=== PATIENT | male | born 1955 | race Caucasian/White ===

== ENCOUNTER 2023-07-04 07:03 | Outpatient (CLI) | payer MEDICARE, SELFPAY ==
[2023-07-04 08:54] LABS: Anion Gap 7 mmol/L (8-16); Appearance Urine Clear (Clear); Bacteria Urine None Seen /hpf; Bilirubin Urine Negative (Negative); Blood Urea Nitrogen 19 mg/dL (9-20); Blood Urine Trace (Negative); Calcium 9.3 mg/dL (8.4-10.2); Carbon Dioxide 28 mmol/L (22-30); Chloride 102 mmol/L (98-107); Cholesterol 178 mg/dL (0-200); Color Urine Yellow (Yellow); Estimated Glomerular Filt Rate > 60; Glucose 116 mg/dL (65-110); Glucose Urine UA Negative (Negative); HDL Direct 35 mg/dL; Ketones Urine Negative (Negative); Leukocyte Esterase Ur 3+ LEU/UL (NEGATIVE); Nitrate Urine Negative (Negative); Non Pathogenic Casts 0-2; Potassium 4.2 mmol/L (3.4-5.0); Protein Urine Negative (Negative); RBC Urine 0-2 /hpf (0-2); Sodium 137 mmol/L (137-145); Specific Grav Ur 1.016 (1.001-1.035); Squamous Epithelial Cell Urine None seen /hpf (Few); Triglycerides 66 mg/dL (<150); Urobilinogen Urine 0.2 mg/dL (<2.0); WBC Urine 51-100 /hpf (0-3); pH Urine 5.5 (5.0-9.0)
[2023-07-04 08:55] LABS: Add Urine Microscopic? YES
[2023-07-04 09:05] LABS: LDL Cholesterol Direct 116 mg/dL
[2023-07-04 09:09] LABS: Hemoglobin A1C 6.1 % (<5.7)
[2023-07-04 09:17] LABS: Creatinine Urine 106.3 mg/dL
[2023-07-04 09:23] LABS: MALB Creatinine Ratio 24.6 mg/g (0-30); Microalbumin Urine Random 26.2 mg/L (0-16.7)
[2023-07-04 09:34] LABS: Vitamin D 25 Hydroxy 87.6 ng/mL
== END 2023-07-04 07:04 | disposition home or self-care (01) ==
PROVIDERS: PCP Nurse Practitioner Family; Visit Provider Nurse Practitioner Family
DX: E55.9 Vitamin D deficiency, unspecified (principal); I10 Essential (primary) hypertension; R80.9 Proteinuria, unspecified; E11.9 Type 2 diabetes mellitus without complications; E78.5 Hyperlipidemia, unspecified; R79.89 Other specified abnormal findings of blood chemistry
CPT/HCPCS: 36415; 80048; 80061; 81001; 82043; 82306; 83036; 83970

== ENCOUNTER 2024-01-01 11:49 | Outpatient (CLI) | payer MEDICARE, SELFPAY ==
[2024-01-01 13:30] LABS: Alanine Aminotransferase 33 U/L (6-50); Albumin Level 4.6 g/dL (3.5-5.1); Alkaline Phosphatase 34 U/L (38-126); Anion Gap 9 mmol/L (8-16); Aspartate Amino Transferase 28 U/L (17-59); Bilirubin,Total 0.9 mg/dL (0.2-1.3); Blood Urea Nitrogen 20 mg/dL (9-20); Calcium 10.2 mg/dL (8.4-10.2); Carbon Dioxide 24 mmol/L (22-30); Chloride 104 mmol/L (98-107); Cholesterol 157 mg/dL (0-200); Estimated Glomerular Filt Rate > 60; Glucose 146 mg/dL (65-110); HDL Direct 45 mg/dL; Potassium 4.5 mmol/L (3.4-5.0); Sodium 137 mmol/L (137-145); Triglycerides 46 mg/dL (<150)
[2024-01-01 13:41] LABS: LDL Cholesterol Direct 106 mg/dL
[2024-01-01 21:58] LABS: Hemoglobin A1C 6.5 % (<5.7)
== END 2024-01-01 11:50 | disposition home or self-care (01) ==
LOC: ANHLAB 11:52
PROVIDERS: PCP Nurse Practitioner Family; Visit Provider Nurse Practitioner Family
DX: E78.5 Hyperlipidemia, unspecified (principal); I10 Essential (primary) hypertension; E11.9 Type 2 diabetes mellitus without complications
CPT/HCPCS: 36415; 80048; 80061; 80076; 83036

== ENCOUNTER 2024-04-13 13:53 | Outpatient (CLI) | payer MEDICARE, SELFPAY ==
[2024-04-13 14:24] LABS: Appearance Urine Clear (Clear); Bacteria Urine None Seen /hpf; Bilirubin Urine Negative (Negative); Blood Urine Non-Hemolyzed Trace (Negative); Color Urine Yellow (Yellow); Glucose Urine UA Negative (Negative); Ketones Urine Negative (Negative); Leukocyte Esterase Ur 3+ LEU/UL (Negative); Nitrate Urine Negative (Negative); Non Pathogenic Casts 0-2; Protein Urine 1+ mg/dL (Negative); RBC Urine 0-2 /hpf (0-2); Specific Grav Ur 1.014 (1.001-1.035); Squamous Epithelial Cell Urine None Seen /hpf (Few); Urobilinogen Urine 0.2 mg/dL (<2.0); WBC Urine >100 /hpf (0-3)
[2024-04-13 14:58] LABS: Add Urine Microscopic? YES
== END 2024-04-13 13:54 | disposition home or self-care (01) ==
LOC: ANHLAB 13:54
PROVIDERS: PCP Nurse Practitioner Family; Visit Provider Nurse Practitioner Family
DX: R30.0 Dysuria (principal)
CPT/HCPCS: 81001; 87086; 87088

== ENCOUNTER 2024-04-24 08:10 | Outpatient (CLI) | payer MEDICARE, SELFPAY ==
[2024-04-24 09:06] LABS: Appearance Urine Clear (Clear); Bacteria Urine None Seen /hpf; Bilirubin Urine Negative (Negative); Blood Urine Negative (Negative); Color Urine Yellow (Yellow); Glucose Urine UA Negative (Negative); Ketones Urine Negative (Negative); Leukocyte Esterase Ur 2+ LEU/UL (Negative); Nitrate Urine Negative (Negative); Non Pathogenic Casts 0-2; Protein Urine Negative (Negative); RBC Urine 0-2 /hpf (0-2); Specific Grav Ur 1.021 (1.001-1.035); Squamous Epithelial Cell Urine None Seen /hpf (Few); Urobilinogen Urine 0.2 mg/dL (<2.0); pH Urine 5.5 (5.0-9.0)
[2024-04-24 09:34] LABS: Add Urine Microscopic? YES
== END 2024-04-24 08:11 | disposition home or self-care (01) ==
PROVIDERS: PCP Nurse Practitioner Family; Visit Provider Nurse Practitioner Family
DX: R82.998 Other abnormal findings in urine (principal)
CPT/HCPCS: 81001

== ENCOUNTER 2024-07-06 07:20 | Outpatient (CLI) | payer MEDICARE, SELFPAY ==
[2024-07-06 08:02] LABS: Add Urine Microscopic? YES; Appearance Urine Clear (Clear); Bacteria Urine Rare /hpf; Bilirubin Urine Negative (Negative); Blood Urine Negative (Negative); Color Urine Yellow (Yellow); Glucose Urine UA Negative (Negative); Ketones Urine Negative (Negative); Leukocyte Esterase Ur 3+ LEU/UL (Negative); Nitrate Urine Negative (Negative); Non Pathogenic Casts 0-2; Protein Urine Negative (Negative); RBC Urine 0-2 /hpf (0-2); Specific Grav Ur 1.018 (1.001-1.035); Squamous Epithelial Cell Urine None Seen /hpf (Few); Urobilinogen Urine 0.2 mg/dL (<2.0); WBC Urine 51-100 /hpf (0-3); pH Urine 5.5 (5.0-9.0)
[2024-07-06 08:32] LABS: Alanine Aminotransferase 33 U/L (6-50); Albumin Level 4.3 g/dL (3.5-5.1); Alkaline Phosphatase 28 U/L (38-126); Anion Gap 9 mmol/L (4-12); Aspartate Amino Transferase 35 U/L (17-59); Bilirubin,Total 0.7 mg/dL (0.2-1.3); Blood Urea Nitrogen 19 mg/dL (9-20); Carbon Dioxide 27 mmol/L (22-30); Chloride 101 mmol/L (98-107); Cholesterol 152 mg/dL (0-200); Estimated Glomerular Filt Rate > 60; Glucose 101 mg/dL (65-110); HDL Direct 43 mg/dL; Potassium 4.3 mmol/L (3.4-5.0); Sodium 137 mmol/L (137-145); Triglycerides 49 mg/dL (<150)
[2024-07-06 08:43] LABS: LDL Cholesterol Direct 95 mg/dL
[2024-07-06 09:03] LABS: Prostate Specific Antigen 1.8 ng/mL (< OR = 4.0)
[2024-07-06 09:46] LABS: Hemoglobin A1C 6.3 % (<5.7)
[2024-07-06 10:05] LABS: Microalbumin Urine Random 60.2 mg/L (0-16.7)
[2024-07-06 10:06] LABS: Creatinine Urine 105.1 mg/dL; MALB Creatinine Ratio 57.3 mg/g (0-30)
[2024-07-06 10:16] LABS: Vitamin D 25 Hydroxy 51.1 ng/mL
== END 2024-07-06 07:21 | disposition home or self-care (01) ==
PROVIDERS: PCP Nurse Practitioner Family; Visit Provider Nurse Practitioner Family
DX: E55.9 Vitamin D deficiency, unspecified (principal); I10 Essential (primary) hypertension; E78.5 Hyperlipidemia, unspecified; E11.9 Type 2 diabetes mellitus without complications; Z12.5 Encounter for screening for malignant neoplasm of prostate
CPT/HCPCS: 36415; 80048; 80061; 80076; 81001; 82043; 82306; 83036; 84153; 84443; G0103

== ENCOUNTER 2024-07-13 12:19 | Outpatient (CLI) | payer MEDICARE, SELFPAY ==
--- NOTE | 2024-07-13 12:35 | ECG_ITS ---
Test Date: 2024-07-13 12:46:19 Measurements Intervals [place] Rate: 38 P: 66 DE: 226 QRS: 11 QRSD: 88 T: 15 QT: 462 QTc: 370 Interpretive Statements SLOW SINUS BRADYCARDIA WITH SINUS ARRHYTHMIA WITH FIRST DEGREE AV BLOCK INTERMITTENT SINUS PAUSES ABNORMAL ECG No previous ECG available for comparison Electronically Signed On 07-13-2024 12:56:29 CDT by Demarcus Cobb D.O.
== END 2024-07-13 12:20 | disposition home or self-care (01) ==
PROVIDERS: PCP Nurse Practitioner Family; Visit Provider Nurse Practitioner Family
DX: R00.1 Bradycardia, unspecified (principal); I10 Essential (primary) hypertension; R94.31 Abnormal electrocardiogram [ECG] [EKG]
CPT/HCPCS: 93005

== ENCOUNTER 2024-07-14 13:27 | Outpatient (CLI) | payer MEDICARE, SELFPAY ==
--- NOTE | 2024-07-16 08:06 | WPDHOLTEREM ---
Holter/Event Monitor Holter/Event Monitor Date of procedure: 07/14/24 Holter/Event Procedure: 24 Hr Holter Monitor Indications: Bradycardia Conclusion: 1. 24 hour holter monitor on 07/14/24. 2. Predominant rhythm is sinus rhythm. HR range 22-106 bpm; average 51 bpm. HR at 22 bpm was slow sinus bradycardia at 06:15. 3. There are 4,000 premature supraventricular complexes, 434 supraventricular couplets, 89 supraventricular bigeminy, 583 supraventricular trigeminy. There is an episode of ectopic atrial or junctional rhythm with QRS change in morphology to LBBB at 82 bpm at 00:48 and at 67 bpm at 02:42. No supraventricular tachycardia. 4. There are 8 premature ventricular complexes and 2 ventricular couplets and 2 ventricular triplets. No ventricular tachycardia. 5. There is a second degree AV block, type I at 13:45. The longest pause is 3.3 seconds at 04:23 due to a sinus pause. 6. No symptoms available for correlation.
== END 2024-07-14 13:28 | disposition home or self-care (01) ==
PROVIDERS: PCP Nurse Practitioner Family; Visit Provider Nurse Practitioner Family
DX: R00.1 Bradycardia, unspecified (principal)
CPT/HCPCS: 93225; 93226

== ENCOUNTER 2025-01-19 08:09 | Outpatient (CLI) | payer MEDICARE, SELFPAY ==
--- OUTSIDE RECORDS SUMMARY | 2025-01-19 08:25 | XMS_ITS | Patient Health Record ---
Author Organization [facility] Office Address [address] [facility] [address] [place] [address] REASON FOR REFERRAL No Information PROBLEMS Problem Type ICD Code Onset Dates Problem Status W/U Status Risk SNOMED Code Notes Problem Anxiety disorder, unspecified (F41.9) Active confirmed Anxiety disorde r (840316111) Problem Chronic kidney disease, stage 2 (mild) (N18.2) Active confirmed Chronic kidne y disease stage 2 (822754001) Problem Chronic fatigue, unspecified (R53.82) Active confirmed Chronic fatigue syndrome (disorder) (92334777) Problem Edema, unspecified (R60.9) Active confirmed Edema (60297319) Problem Essential hypertension (I10) Active confirmed Essential hypertension (91568505) PLAN OF TREATMENT No Information
--- OUTSIDE RECORDS SUMMARY | 2025-01-19 08:26 | XMS_ITS | Data Portability ---
Author Organization [facility], Main Office Address [address] [place] [address] Assessment No assessment recorded. Plan of Treatment Reminders Order Date Submit Date Provider Last Modified By Organization Details Last Modified Time Details Appointments None recorded . Lab HbA1c (hemoglo bin A1c), blood 023 04/11/[email or web address] Add On Lab Orders, [address] [place], [address], 3 08:21:49 CMP, serum or plasma 023 04/11/[email or web address] Add On Lab Orders, [address] [place], [address], 3 08:21:49 Referral None recorded . Procedures None recorded . Surgeries None recorded . Imaging None recorded . Medication Orders None recorded . Patient TargetsNo targets recorded. Patient InstructionsNo instructions recorded. Reason for Referral None Reported. Results Created Date Observation Date Name Description Value Unit Range Abnormal Flag Note LastModifiedBy Organization Detail LastModifiedTime 08/22/20 22 08/22/2022 HEMOG LOBIN A1C HA1C 6.3 % 4.0-6. 0 high Diabe jasmeet Scree corazon Crite rachel: <5.7% Consi stent with absen ce of diabe jasmeet 5.7-6 .4% Consi stent with incre ased risk for diabe jasmeet (pred iabet es) >OR=6 .5% Consi stent with diabe jasmeet REFER ENCE: Diabe jasmeet Care 2016, 39(Melgar ppl.1 ):s13 -s22 Not Available [facility] (Lab) [address] [place], [address], 08/22/2022 19:50:49 08/22/2008/22/2022 COMPR EHENS JESI METAB OLIC PANEL sodium 141 mmol/ L 137-14 5 Not Available [facility] (Lab) [address] [place], [address], 08/22/2022 19:37:46 08/22/20 22 08/22/2022 COMPR EHENS JESI METAB OLIC PANEL potassium 4.8 mmol/ L 3.5-5. 1 Not Available [facility] (Lab) [address] [place], [address], 08/22/2022 19:37:46 08/22/2008/22/2022 COMPR EHENS JESI METAB OLIC PANEL chloride 105 mmol/ L 98-107 Not Available [facility] (Lab) [address] [place], [address], 08/22/2022 19:37:46 08/22/2008/22/2022 COMPR EHENS JESI METAB OLIC PANEL carbon dioxide 27 mmol/ L 22-30 Not Available [facility] (Lab) [address] [place], [address], 08/22/2022 19:37:46 08/22/2008/22/2022 COMPR EHENS JESI METAB OLIC PANEL anion gap 13.8 mmol/ L 14-22 low Not Available [facility] (Lab) [address] [place], [address], 08/22/2022 19:37:46 08/22/20 22 08/22/2022 COMPR EHENS JESI METAB OLIC PANEL glucose 143 mg/dL 70-99 high Not Available [facility] (Lab) [address] [place], [address], 08/22/2022 19:37:46 08/22/20 22 08/22/2022 COMPR EHENS JESI METAB OLIC PANEL BUN 17 mg/dL 8-19 Not Available [facility] (Lab) [address] [place], [address], 08/22/2022 19:37:46 08/22/2008/22/2022 COMPR EHENS JESI METAB OLIC PANEL creatinine 0.88 mg/dL 0.66-1 .25 Not Available [facility] (Lab) [address] [place], [address], 08/22/2022 19:37:46 08/22/20 22 08/22/2022 COMPR EHENS JESI METAB OLIC PANEL GFR >60 Refer ence Range : [place] ge GFR Healt hy Adult : >60 mL/mi n/1.7 3 m2 Chron ic Kidne y Disea se: 15-60 mL/mi n/1.7 3 m2 Kidne y Failu re: <15/m L/min /1.73 m2 www.n iddk. nih.g ov The MDRD study equat ion has not been valid ated in child get <18 years of age; pregn ant women ; the elder ly >85 years of age; or in some racia l or ethni c subgr oups, such as Hisco nics. Outsi de the valid ated orly eters , estim ated GFR is less accur ate, requi ring clini tayla judgm ent on a case- by-ca se basis . Clini tayla inter preta tion for other races and ages must be made by the clini italia. The MDRD study equat ion has not been valid ated for the evalu ation of serum creat inine relat ed to nutri bryson l statu s or medic ation usage . For perso ns <18 years of age, a pedia tric GFR calcu lator is avail able on the NKF websi te: https ://gorge mcbride.mayra romero/pr angel blairal s/kdo qi/gf r_cal culat or Not Available [facility] (Lab) [address] [place], [address], 08/22/2022 19:37:46 08/22/2008/22/2022 COMPR EHENS JESI METAB OLIC PANEL alkaline phosphatase 36 U/L 38-126 low Not Available [facility] (Lab) [address] [facility] [place], [address], 08/22/2022 19:37:46 08/22/20 22 08/22/2022 COMPR EHENS JESI METAB OLIC PANEL alanine aminotransfe rase 24 U/L 0-50 Not Available [facility] (Lab) [address] [place], [address], 08/22/2022 19:37:46 08/22/2008/22/2022 COMPR EHENS JESI METAB OLIC PANEL aspartate aminotransfe rase 30 U/L 15-46 Not Available [facility] (Lab) [address] [place], [address], 08/22/2022 19:37:46 08/22/20 22 08/22/2022 COMPR EHENS JESI METAB OLIC PANEL bilirubin, total 0.80 mg/dL 0.20-1 .30 Not Available [facility] (Lab) [address] [place], [address], 08/22/2022 19:37:46 08/22/20 22 08/22/2022 COMPR EHENS JESI METAB OLIC PANEL calcium 9.3 mg/dL 8.4-10 .2 Not Available [facility] (Lab) [address] [place], [address], 08/22/2022 19:37:46 08/22/20 22 08/22/2022 COMPR EHENS JESI METAB OLIC PANEL total protein 7.9 g/dL 6.3-8. 2 Not Available [facility] (Lab) [address] [place], [address], 08/22/2022 19:37:46 08/22/20 22 08/22/2022 COMPR EHENS JESI METAB OLIC PANEL albumin 4.7 g/dL 3.0-4. 4 high Not Available [facility] (Lab) [address] [place], [address], 08/22/2022 19:37:46 08/22/20 22 08/22/2022 COMPR EHENS JESI METAB OLIC PANEL globulin 3.2 g/dL 2.6-4. 2 Not Available [facility] (Lab) [address] [place], [address], 08/22/2022 19:37:46 08/22/20 22 08/22/2022 COMPR EHENS JESI METAB OLIC PANEL A/G ratio 1.5 ratio 1.0-2. 0 Not Available [facility] (Lab) [address] [place], [address], 08/22/2022 19:37:46 10/30/19 23 10/30/2022 CULTU RE URINE urc ===== ===== ===== ===== ===== ===== ===== ===== ===== ===== ===== ===== ===== ===== ===== ===== ===== ===== ===== ===== ===== ===== ===== ===== CULTU RE NO.: [id number] Exam Statu s: Final Exam Type: CULTU RE URINE ===== ===== ===== ===== ===== ===== ===== ===== ===== ===== ===== ===== ===== ===== ===== ===== ===== ===== ===== ===== ===== ===== ===== ===== Cultu re Repor t: Organ ism #01 Enter ococc us faeca lis (strf ae) Antib iotic s strfa e Achie vable Achie vable (01) Dosag e Serum Level Urine Level mcg/m l mcg/m l Beta- Lacta shanta NEG - 000A Cipro floxa puja <=0.5 S 000A Dapto mycin 0.25 S 000A Eryth romyc in >=8 R 000A Levof loxac in 2 S 000A Linez olid 2 S 000A Tetra cycli ne >=16 R 000A Tigec yclin e <=0.1 2 S 000A Not Available [facility] (Lab) [address] [facility] [place], [address], 11/03/2022 07:29:39 10/30/19 23 10/30/2022 urina lysis , dipst ick Leukocytes (reference range: negative rita/ l) Large Not Available [facility] [address] [place], [address], 10/30/2022 14:52:27 10/30/19 23 10/30/2022 urina lysis , dipst ick Nitrite (reference rage: negative mg/dl) negati ve Not Available [facility] [place] [address] [place], [address], 10/30/2022 14:52:27 10/30/19 23 10/30/2022 urina lysis , dipst ick Urobilinogen (reference range: 0.2-1 mg/dl) 0.2 Not Available [facility] [address] [place], [address], 10/30/2022 14:52:27 10/30/19 23 10/30/2022 urina lysis , dipst ick Protein (reference range: negative mg/dl) 300 Not Available [facility] [place] [address] [place], [address], 10/30/2022 14:52:27 10/30/19 23 10/30/2022 urina lysis , dipst ick pH (reference range: 5-7) 5.0 Not Available [facility] [address] [place], [address], 10/30/2022 14:52:27 10/30/19 23 10/30/2022 urina lysis , dipst ick Blood (reference range: negative Deacon/ l) Large Not Available [facility] [address] [place], [address], 10/30/2022 14:52:27 10/30/19 23 10/30/2022 urina lysis , dipst ick Specific [place]oun (reference range: 1.005-1.030) 1.015 Not Available [facility] [address] [place], [address], 10/30/2022 14:52:27 10/30/19 23 10/30/2022 urina lysis , dipst ick Ketone (reference range: negative mg/dl) Trace Not Available [facility] [address] [place], [address], 10/30/2022 14:52:27 10/30/19 23 10/30/2022 urina lysis , dipst ick Bilirubin (reference range: negative mg/dl) Modera te Not Available [facility] [address] [place], [address], 10/30/2022 14:52:27 10/30/19 23 10/30/2022 urina lysis , dipst ick Glucose (reference range: negative mg/dl) Negati ve Not Available [facility] [address] [place], [address], 10/30/2022 14:52:27 10/30/19 23 10/30/2022 urina lysis , dipst ick Appearance Slight ly Cloudy Not Available [facility] [address] [place], [address], 10/30/2022 14:52:27 10/30/19 23 10/30/2022 urina lysis , dipst ick Color Dark Yellow Not Available [facility] [address] [place], [address], 10/30/2022 14:52:27 12/13/19 23 12/13/2022 CULTU RE URINE urc ===== ===== ===== ===== ===== ===== ===== ===== ===== ===== ===== ===== ===== ===== ===== ===== ===== ===== ===== ===== ===== ===== ===== ===== CULTU RE NO.: [id number] Exam Statu s: Final Exam Type: CULTU RE URINE ===== ===== ===== ===== ===== ===== ===== ===== ===== ===== ===== ===== ===== ===== ===== ===== ===== ===== ===== ===== ===== ===== ===== ===== Cultu re Repor t: Organ ism #01 Enter ococc us faeca lis (strf ae) Antib iotic s strfa e Achie vable Achie vable (01) Dosag e Serum Level Urine Level mcg/m l mcg/m l Ampic illin <=2 S 021D Beta- Lacta shanta NEG - 021D Cipro floxa puja <=0.5 S 021D Levof loxac in 2 S 021D Tetra cycli ne >=16 R 021D Vanco mycin 2 S 021D rt - Test Card Code AST-G P 021D o2 - Final Organ ism ENTER O 021D af - Antib iotic Fami MACRO L 021D af - Antib iotic Famil y Na ap - Pheno type Name RESIS T 021D ap - Pheno type Name Nitro furan toin 32 S 021D Not Available [facility] (Lab) [address] [place], [address], 12/18/2022 08:18:12 12/13/19 23 12/13/2022 PSA SCREE N PSA medicare screen 1.88 NG/mL 0.00-4 .00 Not Available [facility] (Lab) [address] [place], [address], 12/13/2022 21:40:21 12/13/19 23 12/13/2022 HEMOG LOBIN A1C HA1C 6.8 % 4.0-6. 0 high Diabe jasmeet Scree corazon Crite rachel: <5.7% Consi stent with absen ce of diabe jasmeet 5.7-6 .4% Consi stent with incre ased risk for diabe jasmeet (pred iabet es) >OR=6 .5% Consi stent with diabe jasmeet REFER ENCE: Diabe jasmeet Care 2016, 39(Melgar ppl.1 ):s13 -s22 Not Available [facility] (Lab) [address] [place], [address], 12/13/2022 21:14:17 12/13/19 23 12/13/2022 LIPID PANEL cholesterol 157 mg/dL 140-19 9 NIH IDALIA NSUS RECOM MENDA TION FOR ELIZABETH STERO L: ADULT CHILD LOW RISK: <200 <170 BORDE RLINE : <200- 239 ----- HIGH RISK: >240 >200 Not Available [facility] (Lab) [address] [place], [address], 12/13/2022 20:53:44 12/13/19 23 12/13/2022 LIPID PANEL triglyceride s 52 mg/dL 0-150 NIH IDALIA NSUS REPOR T RECOM MENDA TION FOR TRIGL YCERI YOLY: ADULT CHILD LOW RISK: <150 ----- BODER LINE: 150-1 99 ----- HIGH RISK: >200 ----- Not Available [facility] (Lab) [address] [place], [address], 12/13/2022 20:53:44 12/13/19 23 12/13/2022 LIPID PANEL HDL cholesterol 43 mg/dL 40- Not Available [facility] (Lab) [address] [place], [address], 12/13/2022 20:53:44 12/13/19 23 12/13/2022 LIPID PANEL LDL cholesterol, calculated 104 mg/dL 0-130 NIH IDALIA NSUS REPOR T RECOM MENDA TIONS FOR LDL: ADULT CHILD LOW RISK <130 <110 (OPTI MAL LDL) <100 ----- BORDE RLINE : 130-1 59 ----- HIGH RISK: >160 >130 A TRIGL YCERI DE RESUL T >400 INVAL IDATE S THE CALCU LATIO N FOR LDL FRACT IONAT ION - THE LDL RESUL T WILL NOT BE REPOR ABDULAZIZ. Not Available [facility] (Lab) [address] [place], [address], 12/13/2022 20:53:44 12/13/19 23 12/13/2022 MICRO ALBUM IN RANDO M URINE microalbumin , urine 156.8 mg/L 0.0-16 .6 high Not Available [facility] (Lab) [address] [place], [address], 12/13/2022 20:09:09 12/13/19 23 12/13/2022 URINA LYSIS COMPL ETE, IRIS color orange abnormal Not Available [facility] (Lab) [address] [place], [address], 12/13/2022 19:51:04 12/13/19 23 12/13/2022 URINA LYSIS COMPL ETE, IRIS appear extra turbid abnormal Not Available [facility] (Lab) [address] [place], [address], 12/13/2022 19:51:04 12/13/19 23 12/13/2022 URINA LYSIS COMPL ETE, IRIS specific gravity 1.023 1.001- 1.030 Not Available [facility] (Lab) [address] [place], [address], 12/13/2022 19:51:04 12/13/19 23 12/13/2022 URINA LYSIS COMPL ETE, IRIS pH 5.5 pH_un its 5.0-9. 0 Not Available [facility] (Lab) [address] [place], [address], 12/13/2022 19:51:04 12/13/19 23 12/13/2022 URINA LYSIS COMPL ETE, IRIS leukocytes >/=500 rita/u L negati ve- abnormal Not Available [facility] (Lab) [address] [place], [address], 12/13/2022 19:51:04 12/13/19 23 12/13/2022 URINA LYSIS COMPL ETE, IRIS nitrite negati ve negati ve- Not Available [facility] (Lab) [address] [place], [address], 12/13/2022 19:51:04 12/13/19 23 12/13/2022 URINA LYSIS COMPL ETE, IRIS protein 30 mg/dL negati ve- abnormal Not Available [facility] (Lab) [address] [place], [address], 12/13/2022 19:51:04 12/13/19 23 12/13/2022 URINA LYSIS COMPL ETE, IRIS glucose normal mg/dL normal - Not Available [facility] (Lab) [address] [place], [address], 12/13/2022 19:51:04 12/13/19 23 12/13/2022 URINA LYSIS COMPL ETE, IRIS ketones negati ve mg/dL negati ve- Not Available [facility] (Lab) [address] [place], [address], 12/13/2022 19:51:04 12/13/19 23 12/13/2022 URINA LYSIS COMPL ETE, IRIS urobilinogen normal mg/dL normal - Not Available [facility] (Lab) [address] [place], [address], 12/13/2022 19:51:04 12/13/19 23 12/13/2022 URINA LYSIS COMPL ETE, IRIS bilirubin negati ve mg/dL negati ve- Not Available [facility] (Lab) [address] [place], [address], 12/13/2022 19:51:04 12/13/19 23 12/13/2022 URINA LYSIS COMPL ETE, IRIS blood 0.06 mg/dL negati ve- abnormal Not Available [facility] (Lab) [address] [place], [address], 12/13/2022 19:51:04 12/13/19 23 12/13/2022 URINA LYSIS COMPL ETE, IRIS white blood cells 61-100 /i??h pfi?? 0-8 abnormal Not Available [facility] (Lab) [address] [place], [address], 12/13/2022 19:51:04 12/13/19 23 12/13/2022 URINA LYSIS COMPL ETE, IRIS white blood cell clumps modera te /i??h pfi?? none seen- abnormal Not Available [facility] (Lab) [address] [place], [address], 12/13/2022 19:51:04 12/13/19 23 12/13/2022 URINA LYSIS COMPL ETE, IRIS red blood cells 0-4 /i??h pfi?? 0-4 Not Available [facility] (Lab) [address] [place], [address], 12/13/2022 19:51:04 12/13/19 23 12/13/2022 URINA LYSIS COMPL ETE, IRIS bacteria few abnormal Not Available [facility] (Lab) [address] [place], [address], 12/13/2022 19:51:04 12/13/19 23 12/13/2022 URINA LYSIS COMPL ETE, IRIS mucous modera te /i??l pfi?? abnormal Not Available [facility] (Lab) [address] [place], [address], 12/13/2022 19:51:04 12/13/19 23 12/13/2022 URINA LYSIS COMPL ETE, IRIS squamous epithelial none /i??l pfi?? abnormal Not Available [facility] (Lab) [address] [place], [address], 12/13/2022 19:51:04 04/10/20 22 11/06/2017 colon oscop y scree corazon (PROC ) No observ ation record ed. [id number] Not Available 12/26/2022 05:04:38 01/31/20 23 01/30/2023 colon oscop y scree corazon (PROC ) No observ ation record ed. [email or web address] Not Available 2022 09:27:56 Result Notes None recorded. Problems Name Problem SNOMED Code Status Onset Date Resolution Date Notes Provider Name and Address Organization Details Recorded Time Diverticul osis of colon 162045041 Active 2022 PATRICK García, [facility] 3 11:47:45 Benign prostatic hyperplasi a 837432514 Active 2022 Tramaine Barr MD [address] [place] [address], [address] , [facility] 3 12:01:06 Benign essential hypertensi on 6458714 Active Not Available [facility] 3 18:05:03 Liver enzymes outside reference range 366502153 Completed Not Available [facility] 3 04:53:36 Recurrent urinary tract infection 708683612 Completed 202204/11/2023 PATRICK García, [facility] [employer] [facility] 3 11:47:48 Microscopi c hematuria 270560561 Active 2021 Not Available [facility] 3 18:05:03 Adult health examinatio n Active 2021 Not Available [facility] 3 18:05:03 Albuminuri a 634077437 Completed 201912/08/2020 Not Available [facility] 3 04:53:36 Proteinuri a 41214075 Completed Not Available [facility] 3 04:53:37 Microalbum inuria 247317517 Active 2021 Not Available [facility] 3 18:05:03 Type 2 diabetes mellitus without complicati on 704218793 Completed Not Available [facility] 3 04:53:37 Acute urinary tract infection 614197018 Completed 202204/11/2023 PATRICK García null, [facility] 3 11:47:43 Type 2 diabetes mellitus 58315734 Active Not Available [facility] 3 18:05:03 Hyperlipid emia 22756594 Active Not Available [facility] 3 18:05:03 Essential hypertensi on 81561130 Completed Not Available [facility] 3 04:53:37 Diabetes mellitus 97456257 Completed Not Available [facility] 3 04:53:37 Problem Notes None recorded. Procedures Surgical History Date Name Laterality Status Provider Name and Address Organization Details Recorded Time 7 hernia repair completed Not Available [facility] 12/26/2022 04:43:09 other completed Not Available [facility] 10/2022 04:43:09 Imaging Results Imaging Date Name Status LastModified by Organiz ation Details LastModified Time 11/06/2017 colonoscopy screening (PROC) completed [id number] Information not available 12/26/2022 05:04:38 01/30/2023 colonoscopy screening (PROC) completed [email or web address] Information not available 01/31/2023 09:27:56 Procedure Notes None recorded. Medical Equipment None Reported. Allergies Allergen ID Allergen Name Allergen Category Reaction Reaction Severity Criticality Documentation Date Start Date Code Code System Note Provider Name and Address Organization Details Recorded Time 8082 simvastat in medicatio n myalgias (muscle pain) moderate Not available 12/26/2022 64968 RxNorm hyper glyce wilver, weigh t gain Not Available [facility] 3 05:03:57 Medications Name Sig Start Date Stop Date Status Note LastModified by Organization Details LastModified Time fish oil 1000mg capsule TAKE 1 CAPSULE BY MOUTH TWICE A DAY FOR 90 DAYS active Not Available Not Available No t Available amoxicillin 500 mg capsule 04/21 completed Not Available Not Available Not Available glyburide 5 mg tablet 2 tabs BID with meals 08/08 completed Not Available Not Available Not Available hydrocodone 5 mg-acetamin ophen 325 mg tablet TAKE ONE TABLET DAILY AT NIGHT NEEDED 04/21 completed Not Available Not Available Not Available lisinopril 20 mg tablet TAKE 1 TABLET BY MOUTH EVERY DAY. NEEDS APPT FOR FURTHER REFILLS active Not Available Not Available No t Available simvastatin 10 mg tablet TAKE 1 TABLET BY MOUTH EVERY DAY active Not Available Not Available No t Available ciprofloxac in 500 mg tablet TAKE 1 TABLET BY MOUTH EVERY 12 HOURS FOR 7 DAYS 01/19 completed Not Available Not Available Not Available oxycodone-a cetaminophe n 5 mg-325 mg tablet 10/11 completed Not Available Not Available Not Available tamsulosin 0.4 mg capsule TAKE 1 CAPSULE BY MOUTH EVERY DAY FOR 90 DAYS active Not Available Not Available No t Available glipizide ER 2.5 mg tablet, extended release 24 hr 12/05 completed Not Available Not Available Not Available metformin 1,000 mg tablet TAKE 1 TABLET BY MOUTH TWICE A DAY active Not Available Not Available No t Available lisinopril 10 mg tablet TAKE 1 TABLET DAILY active Not Available Not Available No t Available ergocalcife rol (vitamin D2) 1,250 mcg (50,000 unit) capsule TAKE 1 CAPSULE BY MOUTH ONE TIME PER WEEK FOR 90 DAYS active Not Available Not Available No t Available ibuprofen 600 mg tablet TAKE 1 TABLET EVERY SIX HOURS NEEDED FOR PAIN 04/21 completed Not Available Not Available Not Available glipizide 5 mg tablet TAKE 1 TABLET BY MOUTH TWICE A DAY active Not Available Not Available No t Available naproxen 500 mg tablet Take 1 tablet twice a day by oral route. 06/12 completed Not Available Not Available Not Available Microlet Lancet TAKE 1 EACH TWICE A DAY BY MISCELL. ROUTE FOR 30 DAYS. active Not Available Not Available No t Available Laxative (bisacodyl) 5 mg tablet,gabi yed release TAKE 6 TABLETS BY MOUTH AT 8 AM ON 01/29 active Not Available Not Available No t Available chlorhexidi ne gluconate 0.12 % mouthwash RINSE TWICE A DAY WITH 1/2 OUNCE FOR 30 SECONDS THEN SPIT-- NOTHING TO EAT, DRINK, RINSE OR SMOKE FOR 30 MINUTES AFTER RINSING 04/21 completed Not Available Not Available Not Available Contour Test Strips USE 1 STRIP TWICE A DAY. *NEEDS APPT FOR FURTHER REFILLS active Not Available Not Available No t Available OneTouch Ultra2 Meter kit 01/18 completed Not Available Not Available Not Available fenofibrate nanocrystal lized 145 mg tablet TAKE 1 TABLET BY MOUTH EVERY DAY APPT FOR FURTHER REFILLS active Not Available Not Available No t Available lidocaine 2 % mucosal jelly in applicator Take 10 mL by mucous route. 01/22 completed Not Available Not Available Not Available GaviLyte-G 236 gram-22.74 gram-6.74 gram-5.86 gram oral solution MIX AND DRINK HALF AT 5 PM ON 01/29 AND THE OTHER HALF AT 5 AM 01/30 completed Not Available Not Available Not Available Suprep Bowel Prep Kit 17.5 gram-3.13 gram-1.6 gram oral solution 12/24 completed Not Available Not Available Not Available Procto-Med HC 2.5 % topical cream perineal applicator APPLY A THIN LAYER TO THE AFFECTED AREA(S) BY TOPICAL ROUTE 2-4 TIMESDAIL Y 07/29 completed Not Available Not Available Not Available OneToKidaro Ultra Blue Test Strip 08/08 completed Not Available Not Available Not Available Vitals Date Recorded Body mass index (BMI) Body height Oxygen saturation Oxygen saturation in Arterial blood by Pulse oximetry Pain severity - 0-10 verbal numeric rating [Score] - Reported Heart rate Body weight Systolic blood pressure Diastolic blood pressure Provider Name and Address Organization Details Last Updated DateTime 2 24.2 kg/m2 177.8 cm 97 % 97 % 0 78 /min 66573.1 1 g 130 mm[Hg] 80 mm[Hg] Not Available [facility] 3 04:50:52 Date Recorded Body mass index (BMI) Body height Oxygen saturation Oxygen saturation in Arterial blood by Pulse oximetry Heart rate Body weight Systolic blood pressure Diastolic blood pressure Provider Name and Address Organization Details Last Updated DateTime 2 23.5 kg/m2 177.8 cm 98 % 98 % 53 /min 23083.1 5 g 140 mm[Hg] 74 mm[Hg] Not Available [facility] 3 04:50:52 Date Recorded Body mass index (BMI) Body height Oxygen saturation Oxygen saturation in Arterial blood by Pulse oximetry Heart rate Body weight Systolic blood pressure Diastolic blood pressure Provider Name and Address Organization Details Last Updated DateTime 3 23 kg/m2 177.8 cm 97 % 97 % 77 /min 03029.7 8 g 142 mm[Hg] 70 mm[Hg] Not Available [facility] 3 04:50:52 Date Recorded Body mass index (BMI) Body height Oxygen saturation Oxygen saturation in Arterial blood by Pulse oximetry Heart rate Body temperature Body weight Systolic blood pressure Diastolic blood pressure Provider Name and Address Organization Details Last Updated DateTime 3 23.2 kg/m2 177.8 cm 97 % 97 % 62 /min 97.6 [degF] 48301.9 6 g 118 mm[Hg] 66 mm[Hg] Not Available [facility] 3 04:50:52 Date Recorded Body height Body mass index (BMI) Body weight Body temperature Heart rate Oxygen saturation Oxygen saturation in Arterial blood by Pulse oximetry Systolic blood pressure Diastolic blood pressure Provider Name and Address Organization Details Last Updated DateTime 3 177.8 cm 23.2 kg/m2 84788.9 6 g 97.7 [degF] 60 /min 97 % 97 % 120 mm[Hg] 70 mm[Hg] PATRICK Paul [place] - [facility] [place] [employer] 3 11:43:57 Social History Question Answer Notes LastModified by Organizat ion Details LastModified Time Tobacco Smoking Status Former Smoker Not Available [facility] 12/26/2022 04:42:32 Do You Have An Advance Directive? Yes MIGRATION.36531 [id number] Information not available 12/26/2022 What Is Your Level Of Alcohol Consumption? None MIGRATION.38718 98880 Information not available 12/26/2022 Do You Wear A Helmet When Biking? No MIGRATION.75197 46907 Information not available 12/26/2022 Are You Blind Or Do You Have Difficulty Seeing? No MIGRATION.32884 37702 Information not available 12/26/2022 What Is Your Level Of Caffeine Consumption? Occasional MIGRATION.44172 53807 Information not available 12/26/2022 How Much Tobacco Do You Chew? None MIGRATION.52127 32490 Information not available 12/26/2022 Are You Deaf Or Do You Have Serious Difficulty Hearing? No MIGRATION.07906 08146 Information not available 12/26/2022 What Type Of Diet Are You Following? REGULAR MIGRATION.36253 31913 Information not available 12/26/2022 Which Illicit Or Recreational Drugs Have You Used? None MIGRATION.90894 92248 Information not available 12/26/2022 What Is Your Occupation? [employer] MIGRATION.98985 26508 Information not available 12/26/2022 Have There Been Any Changes To Your Family Or Social Situation? No MIGRATION.18150 42437 Information not available 12/26/2022 What Is The Fluoride Status Of Your Home? Fluoridated MIGRATION.64660 02298 Information not available 12/26/2022 When Did You Quit Smoking? 17+yearssincelastci bobby At 32 Years Old MIGRATION.05527 98114 Information not available 12/26/2022 Where Do You Live? [place] MIGRATION.51467 81198 Information not available 12/26/2022 What Was The Date Of Your Most Recent Tobacco Screening? 04/11/2022 MIGRATION.22175 68365 Information not available 12/26/2022 Do You Use Your Seat Belt Or Car Seat Routinely? Yes MIGRATION.82644 33010 Information not available 12/26/2022 Do You Have Smoke And Carbon Monoxide Detectors In Your Home? Yes MIGRATION.67576 45936 Information not available 12/26/2022 Do You Use Sunscreen Routinely? No MIGRATION.83714 35601 Information not available 12/26/2022 Do You Have Any Dietary Restrictions? No MIGRATION.83764 08288 Information not available 12/26/2022 Sex: Male Functional Status Question Answer Note LastModified by Organizat ion Details LastModified Time Do you have difficulty walking or climbing stairs? No MIGRATION.0580215 026 Information not available 12/26/2022 Do you have transportation difficulties? No MIGRATION.5879201 026 Information not available 12/26/2022 Are you able to walk? YESWOREST MIGRATION.0352332 026 Information not available 12/26/2022 Do you have difficulty doing errands alone? No MIGRATION.2198117 026 Information not available 12/26/2022 Are you able to care for yourself? Yes MIGRATION.5167355 026 Information not available 12/26/2022 Do you have difficulty dressing or bathing? No MIGRATION.1734351 026 Information not available 12/26/2022 What is your exercise level? None MIGRATION.7137210 026 Information not available 12/26/2022 Mental Status Question Answer Note LastModified by Organizat ion Details LastModified Time Do you have difficulty concentrating, remembering or making decisions? No MIGRATION.[id number] 6 Information not available 12/26/2022 Family History Relationship Description Onset Age of this Age Resolved Age Notes LastModified by Organization Details LastModified Time Brother Diabetes mellitus MIGRATION.160 [id number] Not available 12/26/2022 04:43:20 Brother Diabetes mellitus MIGRATION.530 [id number] Not available 12/26/2022 04:43:20 Father Diabetes mellitus MIGRATION.062 [id number] Not available 12/26/2022 04:43:20 Medical History Condition Response DIABETES, TYPE Y HYPERTENSION Y HIGH CHOLESTEROL / HYPERLIPIDEMIA Y Immunizations Vaccine Type Date Status Note Provider Nam e and Address Organization Details Recorded Time Influenza, high-dose, trivalent, PF 2 completed Not Available [facility] 04/08/2023 18:05:04 Influenza, high-dose, trivalent, PF 0 completed Not Available [facility] 04/08/2023 18:05:04 pneumococcal polysaccharide PPV23 7 completed Not Available [facility] 04/08/2023 18:05:04 SARS-COV-2 (COVID-19) vaccine, UNSPECIFIED 1 completed Not Available [facility] 04/08/2023 18:05:04 SARS-COV-2 (COVID-19) vaccine, UNSPECIFIED 1 completed Not Available [facility] 04/08/2023 18:05:04 Influenza, high-dose, trivalent, PF 9 completed Not Available [facility] 04/08/2023 18:05:04 Influenza, high-dose, quadrivalent, PF 2 completed Not Available [facility] 04/08/2023 18:05:04 Influenza, high-dose, quadrivalent, PF 1 completed Not Available [facility] 04/08/2023 18:05:04 Influenza, split virus, quadrivalent, PF 0 completed Not Available [facility] 04/08/2023 18:05:04 Influenza, split virus, quadrivalent, PF 7 completed Not Available [facility] 04/08/2023 18:05:04 Influenza, split virus, quadrivalent, preservative 6 completed Not Available [facility] 04/08/2023 18:05:04 Influenza, split virus, quadrivalent, PF 5 completed Not Available [facility] 04/08/2023 18:05:04 Past Encounters Encounter ID Performer Location Encounter Start Date Encounter Closed Date Diagnosis/Indication Diagnosis SNOMED-CT Code Diagnosis ICD10 Code Diagnosis Note [id number] [facility] [address] [place] [address] 04/06/2021 00:00:00 04/06/2021 13:35:37 [id number] [facility] [address] [place] [address] 08/08/2021 00:00:00 08/08/2021 13:28:20 [id number] [facility] [address] [address] 12/08/2021 00:00:00 12/08/2021 12:55:19 [id number] [facility] [address] [address] 12/25/2021 00:00:00 12/25/2021 12:49:53 [id number] [facility] [address] [address] 01/03/2022 00:00:00 01/03/2022 13:49:04 [id number] [facility] [address] [address] 01/22/2022 00:00:00 01/22/2022 12:51:27 [id number] [facility] [address] [address] 04/11/2022 00:00:00 04/11/2022 13:03:20 [id number] [facility] [address] [address] 08/22/2022 00:00:00 08/22/2022 12:28:46 [id number] [facility] [address] [address] 10/30/2022 00:00:00 10/30/2022 15:07:49 [id number] [facility] [address] [address] 12/13/2022 00:00:00 12/13/2022 13:25:47 [id number] Tramaine Barr MD [facility] [address] [place] [address] 04/11/2023 11:39:18 04/11/2023 12:16:18 Type 2 diabetes mellitus 62557428 E11.37X9 under control Benign ess ential hypertension 8202763 I10 under control Hyperlipidemia 67438564 E78.5 no statins due to side effects Microscopic hematuria 19 0342135 R31.29 no symptoms, seen urology Microalbuminuria 8324095 06 R80.9 on lisinopril Adult heal th examination 228887166 Z00.00 Colonoscop y- 02/17Pneumo vax- 09/2007Pre vnar and pneumovax - never wantsPSA- 12/20FLU- 07/2022Eye exam- 2COV ID- 02/22/21. 04/03/21,0 12/08/21 Benign pro static hyperplasia 130225726 N40.0 meds help Health Concerns Section Related Observation LastModified by Organization Detai ls LastModified Time None Recorded Concern Status LastModified by Organization Details LastModified Time None Recorded Advance Directives Directive Y: Payers Encounter Date Sequence Insurance Name Policy Number Policy Martinez Covered Member ID Martinez Member ID Guarantor Name 04/11/2023 1 [employer] (MEDICARE REPLACEMENT PPO) [id number] Genaro Jaramillo [id number] Genaro Jaramillo Notes Date Note Type Note Provider Name and Address Organization Details Recorded Time 04/11/2023 text/html Doing fine, compliant to medications, no side affects, here for follow up DM- accu checks are 80-120, controlling diet, doing exercise regularly, A1c was 6.4 (12/2022)Last eye exam was 05/2022 ([facility]) in chartNo hypoglycemia, No numbness or tinglingMeds- Glyburide 5 mg 2 tab BID, Metformin 1,000 mg BID HTN- On meds and under controlMeds- Lisinopril 20 mg daily Hyperlipidemia- can not take statins due to side effects, labs good 12/20Meds- Fenofibrate 145 mg daily, Hemorrhoids- some times flare ups, no bleeding, watching diet Elevated liver enzymes in the past, improved watching diet, maintaining weight Microscopic hematuria- seen urology, neg cysto in 2018 AND 2021,, CT urogram showed cystitis, seen nephrology BPH- seen on CT urogtam, on Tamsulosin Diverticulosis- watching diet, colonoscopy 02/17, Dr Mckeon, next in 5 years Tramaine Barr MD [address] [facility], [facility] [address], [place], [address], [place] [facility] 04/11/2023 12:07:32
--- OUTSIDE RECORDS SUMMARY | 2025-01-19 08:26 | XMS_ITS | Clinical Summary ---
Author Organization [facility] Address [address] [place] [id number] Care Team Providers Care Almond Paste Mixer Name Role Phone Unavailable Primary Care Provider Unavailabl e Immunizations Immunization Administration Dates Next Due Covid-19, Mrna, Lnp-s, Pf, 30 Mcg/0.3 Ml Dose (P brianazer) 12/08/2021 Social History Tobacco Use Types Packs/Day Years Used Date Smoking Tobacco: Never Assessed Sex and Gender Information Value Date Recorded Sex Assigned at Not on file Legal Sex Male 2:02 PM [employer] Gender Identity Not on file Sexual Orientation Not on file Plan of Treatment Health Maintenance Due Date Last Done Comments Hepatitis C Virus (HCV) Screening 1955 TdaP Immunization 1955 Colonoscopy 01/09/2001 Colorectal Cancer Screening 01/09/2001 Cologuard 01/09/2006 Immunochemical Fecal Occult Blood 01/09/2006 Zoster Immunization (1 of 2) 01/09/2006 Pneumococcal Immunization (50+ years) (2 of 2 - PCV) 09/28/2008 09/28/2007 Influenza Immunization (#1) 06/28/202407/28, 08/12/2020, 10/11/2017, Additional history exists SARS-COV-2 Immunization ( season) 2024 12/08/2021, 04/03/2021, 02/22/2021 Respiratory Syncytial Virus (RSV) Immunization (Adult) (1 - 1-dose 75+ series) 01/09/2031 Hepatitis B Immunization Aged Out No longer eligible based on patient's age to complete this topic Meningococcal Immunization (ACWY) Aged Out No longer eligible based on patient's age to complete this topic Rotavirus Immunization Aged Out No lo nger eligible based on patient's age to complete this topic
[2025-01-19 08:57] LABS: Alanine Aminotransferase 34 U/L (6-50); Albumin Level 4.5 g/dL (3.5-5.1); Alkaline Phosphatase 35 U/L (38-126); Anion Gap 10 mmol/L (4-12); Aspartate Amino Transferase 29 U/L (17-59); Blood Urea Nitrogen 19 mg/dL (9-20); Calcium 9.4 mg/dL (8.4-10.2); Carbon Dioxide 25 mmol/L (22-30); Chloride 105 mmol/L (98-107); Cholesterol 176 mg/dL (0-200); Estimated Glomerular Filt Rate > 60; Glucose 105 mg/dL (65-110); HDL Direct 39 mg/dL; Potassium 4.3 mmol/L (3.4-5.0); Sodium 140 mmol/L (137-145); Triglycerides 44 mg/dL (<150)
[2025-01-19 09:07] LABS: LDL Cholesterol Direct 109 mg/dL
[2025-01-19 10:06] LABS: Hemoglobin A1C 5.7 % (<5.7)
== END 2025-01-19 08:10 | disposition home or self-care (01) ==
LOC: ANHLAB 08:10
PROVIDERS: PCP Nurse Practitioner Family; Visit Provider Nurse Practitioner Family
DX: E11.9 Type 2 diabetes mellitus without complications (principal); I10 Essential (primary) hypertension; E78.5 Hyperlipidemia, unspecified
CPT/HCPCS: 36415; 80053; 80061; 83036

== ENCOUNTER 2025-07-29 07:30 | Outpatient (CLI) | payer MEDICARE, SELFPAY ==
[2025-07-29 08:11] LABS: Hematocrit 43.6 % (42.0-52.0); Hemoglobin 14.8 g/dL (14.0-18.0); Immature Granulocyte Percent A 0.4 % (0-0.5); Lymphocytes Absolute Auto 1.68 K/mm3 (0.9-3.2); Mean Corpuscular HGB Conc 33.9 g/dl (32-36); Mean Corpuscular Hemoglobin 31.8 pg (26-34); Mean Corpuscular Volume 93.8 fl (80-100); Nucleated Red Blood Cells Absolute Auto 0.000 K/mm3 (0.0-0.012); Nucleated Red Blood Cells Perc 0.0 % (0.0-0.2); Platelet Count Result 180 k/mm3 (150-375); Red Blood Count 4.65 M/mm3 (4.6-6.20); White Blood Count 7.7 K/mm3 (4.5-10.0)
[2025-07-29 08:15] LABS: Add Urine Microscopic? YES; Appearance Urine Cloudy (Clear); Glucose Urine UA Negative (Negative); Leukocyte Esterase Ur 3+ LEU/UL (Negative); Nitrate Urine Negative (Negative); Non Pathogenic Casts 0-2; Specific Grav Ur 1.022 (1.001-1.035)
[2025-07-29 08:30] LABS: Alanine Aminotransferase 26 U/L (6-50); Albumin Level 4.3 g/dL (3.5-5.1); Alkaline Phosphatase 50 U/L (38-126); Anion Gap 11 mmol/L (4-12); Aspartate Amino Transferase 32 U/L (17-59); Bilirubin,Total 1.1 mg/dL (0.2-1.3); Blood Urea Nitrogen 18 mg/dL (9-20); Calcium 9.1 mg/dL (8.4-10.2); Carbon Dioxide 23 mmol/L (22-30); Chloride 103 mmol/L (98-107); Cholesterol 112 mg/dL (0-200); Estimated Glomerular Filt Rate > 60; Glucose 113 mg/dL (65-110); HDL Direct 39 mg/dL; Potassium 4.1 mmol/L (3.4-5.0); Sodium 137 mmol/L (137-145); Total Protein 7.6 g/dL (6.3-8.2); Triglycerides 53 mg/dL (<150)
[2025-07-29 08:40] LABS: Hemoglobin A1C 7.2 % (<5.7)
[2025-07-29 09:09] LABS: Thyroid Stimulating Hormone Reflex 2.360 uIU/mL (0.465-4.68)
[2025-07-29 09:26] LABS: MALB Creatinine Ratio 259.5 mg/g (0-30)
== END 2025-07-29 07:31 | disposition home or self-care (01) ==
LOC: ANHLAB 07:30
PROVIDERS: PCP Nurse Practitioner Family; Visit Provider Nurse Practitioner Family
DX: E55.9 Vitamin D deficiency, unspecified (principal); E78.5 Hyperlipidemia, unspecified; I10 Essential (primary) hypertension; R82.998 Other abnormal findings in urine; E11.9 Type 2 diabetes mellitus without complications
CPT/HCPCS: 36415; 80053; 80061; 81001; 82043; 82306; 83036; 84443; 85025; 87086; 87147; 87186

== ENCOUNTER 2025-08-08 08:55 | Emergency (ER) | payer MEDICARE, SELFPAY ==
[2025-08-08 09:02] VITALS: BP 163/99; PULSE 68; RESP 18; TEMP 36.6; O2SAT 98
--- OUTSIDE RECORDS SUMMARY | 2025-08-08 10:04 | XMS_ITS | Data Portability ---
Author Organization [facility] [employer], Main Office Address [address] [place] [address] Assessment No assessment recorded. Plan of Treatment Reminders Order Date Submit Date Provider Last Modified By Organization Details Last Modified Time Details Appointments None recorded . Lab HbA1c (hemoglo bin A1c), blood 023 04/11/20 23 [email or web address] [facility], [address] [place], [address], 3 08:21:49 CMP, serum or plasma 023 04/11/20 23 [email or web address] [facility], [address] [place], [address], 3 08:21:49 Referral None recorded . Procedures [...] 2016, 39(Melgar ppl.1 ):s13 -s[address] [facility] (Lab) [address] [place], [address], 08/22/2022 19:50:49 08/22/2008/22/2022 COMPR EHENS JESI METAB OLIC PANEL sodium 141 mmol/ L 137-[address] [facility] (Lab) [address] [place], [address], 08/22/2022 19:37:46 08/22/2008/22/2022 COMPR EHENS JESI METAB OLIC PANEL potassium 4.8 mmol/ L 3.5-5. [address] [facility] (Lab) [address] [place], [address], 08/22/2022 19:37:46 08/22/2008/22/2022 COMPR EHENS JESI METAB OLIC PANEL chloride 105 mmol/ L 98-[address] [facility] (Lab) [address] [place], [address], 08/22/2022 19:37:46 08/22/2008/22/2022 COMPR EHENS JESI METAB OLIC PANEL carbon dioxide 27 mmol/ L 22-[address] [facility] (Lab) [address] [place], [address], 08/22/2022 19:37:46 08/22/20 22 08/22/2022 COMPR EHENS JESI METAB OLIC PANEL anion gap 13.8 mmol/ L 14-[address] [facility] (Lab) [address] [place], [address], 08/22/2022 19:37:46 08/22/20 22 08/22/2022 COMPR EHENS JESI METAB OLIC PANEL glucose 143 mg/dL 70-[address] [facility] (Lab) [address] [place], [address], 08/22/2022 19:37:46 08/22/20 22 08/22/2022 COMPR EHENS JESI METAB OLIC PANEL BUN 17 mg/dL 8-[address] [facility] (Lab) [address] [place], [address], 08/22/2022 19:37:46 08/22/20 22 08/22/2022 COMPR EHENS JESI METAB OLIC PANEL creatinine 0.88 mg/dL 0.66-[address] [facility] (Lab) [address] [place], [address], 08/22/2022 19:37:46 08/22/20 22 08/22/2022 COMPR EHENS JESI METAB OLIC PANEL GFR >60 Refer ence Range : [place] ge GFR Healt hy Adult : >60 [...] or ethni c subgr oups, such as Hispa nics. Outsi de the valid ated orly [...] NKF websi te: https ://gorge mcbride.mayra romero/pr fiordalizaess johnnieal s/kdo qi/gf r_cal culat or Not Available [facility] (Lab) [address] [place], [address], 08/22/2022 19:37:46 08/22/2008/22/2022 COMPR EHENS JESI METAB OLIC PANEL alkaline phosphatase 36 U/L 38-126 low Not Available [facility] (Lab) [address] [place], [address], 08/22/2022 19:37:46 08/22/20 22 08/22/2022 COMPR EHENS JESI METAB OLIC PANEL alanine aminotransfe rase 24 U/L 0-50 Not Available [facility] (Lab) [address] [place], [address], 08/22/2022 19:37:46 08/22/2008/22/2022 COMPR EHENS JESI METAB OLIC PANEL aspartate aminotransfe rase 30 U/L 15-46 Not Available [facility] (Lab) [address] [place], [address], 08/22/2022 19:37:46 08/22/20 22 08/22/2022 COMPR EHENS JESI METAB OLIC PANEL bilirubin, total 0.80 mg/dL 0.20-[address] [facility] (Lab) [address] [place], [address], 08/22/2022 19:37:46 08/22/2008/22/2022 COMPR EHENS JESI METAB OLIC PANEL calcium 9.3 mg/dL 8.4-[address] [facility] (Lab) [address] [place], [address], 08/22/2022 19:37:46 08/22/20 22 08/22/2022 COMPR EHENS JESI METAB OLIC PANEL total protein 7.9 g/dL 6.3-8. [address] [facility] (Lab) [address] [place], [address], 08/22/2022 19:37:46 08/22/20 22 08/22/2022 COMPR EHENS JESI METAB OLIC PANEL albumin 4.7 g/dL 3.0-4. [address] [facility] (Lab) [address] [place], [address], 08/22/2022 19:37:46 08/22/20 22 08/22/2022 COMPR EHENS JESI METAB OLIC PANEL globulin 3.2 g/dL 2.6-4. [address] [facility] (Lab) [address] [place], [address], 08/22/2022 19:37:46 08/22/20 22 08/22/2022 COMPR EHENS JESI METAB OLIC PANEL A/G ratio 1.5 ratio 1.0-2. [address] [facility] (Lab) [address] [place], [address], 08/22/2022 19:37:46 10/30/19 23 10/30/2022 CULTU RE URINE urc ===== ===== ===== ===== ===== ===== ===== ===== ===== ===== ===== ===== ===== ===== ===== ===== ===== ===== ===== ===== ===== ===== ===== ===== CULTU RE NO.: [id number] 8 Exam Statu s: Final Exam Type: [...] e <=0.1 2 S 000A Not Available [facility] (Lab) [address] [facility], [place], [address], 11/03/2022 07:29:39 10/30/19 23 10/30/2022 urina lysis , dipst ick Leukocytes (reference range: negative rita/ l) Large Not Available [facility] [address] [facility] [place], [address], 10/30/2022 14:52:27 10/30/19 23 10/30/2022 urina lysis , dipst ick Nitrite (reference rage: negative mg/dl) negati ve Not Available [facility]_hrc_gm [facility] [address] [facility] [place], [address], 10/30/2022 14:52:27 10/30/19 23 10/30/2022 urina lysis , dipst ick Urobilinogen (reference range: 0.2-1 mg/dl) 0.2 Not Available [facility] Internal [facility] [address] [facility] [place], [address], 10/30/2022 14:52:27 10/30/19 23 10/30/2022 urina lysis , dipst ick Protein (reference range: negative mg/dl) 300 Not Available [facility] [address] [place], [address], 10/30/2022 14:52:27 10/30/19 23 10/30/2022 urina lysis , dipst ick pH (reference range: 5-7) 5.0 Not Available Z_hr [facility] [address] [place], [address], 10/30/2022 14:52:27 10/30/19 23 10/30/2022 urina lysis , dipst ick Blood (reference range: negative Deacon/ l) Large Not Available [facility] [address] [place], [address], 10/30/2022 14:52:27 10/30/19 23 10/30/2022 urina lysis , dipst ick Specific [place] (reference range: 1.005-1.030) 1.015 Not Available [facility] [address] [place], [address], 10/30/2022 14:52:27 10/30/19 23 10/30/2022 urina lysis , dipst ick Ketone (reference range: negative mg/dl) Trace Not Available [facility] [address] [place], [address], 10/30/2022 14:52:27 10/30/19 23 10/30/2022 urina lysis , dipst ick Bilirubin (reference range: negative mg/dl) Modera te Not Available [facility] [address] [place], [address], 10/30/2022 14:52:27 10/30/19 23 10/30/2022 urina lysis , dipst ick Glucose (reference range: negative mg/dl) Negati ve Not Available [facility] [address] [place], [address], 10/30/2022 14:52:27 10/30/19 23 10/30/2022 urina lysis , dipst ick Appearance Slight ly Cloudy Not Available [facility] [address] [place], [address], 10/30/2022 14:52:27 10/30/19 23 10/30/2022 urina lysis , dipst ick Color Dark Yellow Not Available [facility] [address] [place], [address], 10/30/2022 14:52:27 12/13/19 23 12/13/2022 CULTU RE URINE urc ===== ===== ===== ===== ===== ===== ===== ===== ===== ===== ===== ===== ===== ===== ===== ===== ===== ===== ===== ===== ===== ===== ===== ===== CULTU RE NO.: [id number] 3 Exam Statu s: Final Exam Type: [...] furan toin [address] Not Available [facility] (Lab) [address] [place], [address], 12/18/2022 08:18:12 12/13/19 23 12/13/2022 PSA SCREE N PSA medicare screen 1.88 NG/mL 0.00-[address] [facility] (Lab) [address] [place], [address], 12/13/2022 21:40:21 12/13/19 23 12/13/2022 HEMOG LOBIN A1C HA1C 6.8 % 4.0-6. 0 high Diabe jasmeet Scree corazon Crite rachel: <5.7% Consi stent with absen ce of diabe jasmeet 5.7-6 .4% Consi stent with incre ased risk for diabe jasmeet (pred iabet es) >OR=6 .5% Consi stent with diabe jasmeet REFER ENCE: Diabe jasmeet Care 2016, 39(Melgar ppl.1 ):s13 -s22 [address] [facility] (Lab) [address] [place], [address], 12/13/2022 21:14:17 12/13/19 23 12/13/2022 LIPID PANEL cholesterol 157 mg/dL 140-19 9 NIH IDALIA NSUS RECOM MENDA TION FOR ELIZABETH STERO L: ADULT CHILD LOW RISK: <200 <170 BORDE RLINE : <200- 239 ----- HIGH RISK: >240 >[address] [facility] (Lab) [address] [place], [address], 12/13/2022 20:53:44 12/13/19 23 12/13/2022 LIPID PANEL triglyceride s 52 mg/dL 0-150 NIH IDALIA NSUS REPOR T RECOM MENDA TION FOR TRIGL YCERI YOLY: ADULT CHILD LOW RISK: <150 ----- BODER LINE: 150-1 99 ----- HIGH RISK: >200 ----- Not [address] [facility] (Lab) [address] [place], [address], 12/13/2022 20:53:44 12/13/19 23 12/13/2022 LIPID PANEL HDL cholesterol 43 mg/dL 40- Not Available [facility] (Lab) [address] [place], [address], 12/13/2022 20:53:44 12/13/19 23 12/13/2022 LIPID PANEL [...] WILL NOT BE REPOR ABDULAZIZ. Not Available [facility] (Lab) [address] [place], [address], 12/13/2022 20:53:44 12/13/19 23 12/13/2022 MICRO ALBUM IN RANDO M URINE microalbumin , urine 156.8 mg/L 0.0-16 [address] [facility] (Lab) [address] [place], [address], 12/13/2022 20:09:09 12/13/19 23 12/13/2022 URINA LYSIS COMPL ETE, IRIS color orange abnormal Not Available [facility] (Lab) [address] [place], [address], 12/13/2022 19:51:04 12/13/19 23 12/13/2022 URINA LYSIS COMPL ETE, IRIS appear extra turbid abnormal Not Available [facility] (Lab) [address] [place], [address], 12/13/2022 19:51:04 12/13/19 23 12/13/2022 URINA LYSIS COMPL ETE, IRIS specific gravity 1.023 1.001- 1.[address] [facility] (Lab) [address] [place], [address], 12/13/2022 19:51:04 12/13/19 23 12/13/2022 URINA LYSIS COMPL ETE, IRIS pH 5.5 pH_un its 5.0-9. [address] [facility] (Lab) [address] [place], [address], 12/13/2022 19:51:04 12/13/19 23 12/13/2022 URINA LYSIS COMPL ETE, IRIS leukocytes >/=500 rita/u L negati ve- abnormal Not Available [facility] (Lab) [address] [place], [address], 12/13/2022 19:51:04 12/13/19 23 12/13/2022 URINA LYSIS COMPL ETE, IRIS nitrite negati ve negati ve- Not Available [facility] (Lab) [address] [place], [address], 12/13/2022 19:51:04 12/13/19 23 12/13/2022 URINA LYSIS COMPL ETE, IRIS protein 30 mg/dL negati ve- abnormal Not Available [facility] (Lab) [address] [place], [address], 12/13/2022 19:51:04 12/13/19 23 12/13/2022 URINA LYSIS COMPL ETE, IRIS glucose normal mg/dL normal - Not Available [facility] (Lab) [address] [facility] [place], [address], 12/13/2022 19:51:04 12/13/19 23 12/13/2022 URINA LYSIS COMPL ETE, IRIS ketones negati ve mg/dL negati ve- Not Available [facility] (Lab) [address] [place], [address], 12/13/2022 19:51:04 12/13/19 23 12/13/2022 URINA LYSIS COMPL ETE, IRIS urobilinogen normal mg/dL normal - Not Available [facility] (Lab) [address] [place], [address], 12/13/2022 19:51:04 12/13/19 23 12/13/2022 URINA LYSIS COMPL ETE, IRIS bilirubin negati ve mg/dL negati ve- Not Available [facility] (Lab) [address] [place], [address], 12/13/2022 19:51:04 12/13/19 23 12/13/2022 URINA LYSIS COMPL ETE, IRIS blood 0.06 mg/dL negati ve- abnormal Not Available [facility] (Lab) [address] [place], [address], 12/13/2022 19:51:04 12/13/19 23 12/13/2022 URINA LYSIS COMPL ETE, IRIS white blood cells 61-100 /i??h pfi?? 0-[address] [facility] (Lab) [address] [place], [address], 12/13/2022 19:51:04 12/13/19 23 12/13/2022 URINA LYSIS COMPL ETE, IRIS white blood cell clumps modera te /i??h pfi?? none seen- abnormal Not Available [facility] (Lab) [address] [place], [address], 12/13/2022 19:51:04 12/13/19 23 12/13/2022 URINA LYSIS COMPL ETE, IRIS red blood cells 0-4 /i??h pfi?? 0-[address] [facility] (Lab) [address] [facility] [place], [address], 12/13/2022 19:51:04 12/13/19 23 12/13/2022 URINA LYSIS COMPL ETE, IRIS bacteria few abnormal Not Available [facility] (Lab) [address] [place], [address], 12/13/2022 19:51:04 12/13/19 23 12/13/2022 URINA LYSIS COMPL ETE, IRIS mucous modera te /i??l pfi?? abnormal Not Available [facility] (Lab) [address] [place], [address], 12/13/2022 19:51:04 12/13/19 23 12/13/2022 URINA LYSIS COMPL ETE, IRIS squamous epithelial none /i??l pfi?? abnormal Not Available [facility] (Lab) [address] [place], [address], 12/13/2022 19:51:04 04/10/20 22 11/06/2017 colon oscop y scremayela chandra (PROC ) No observ ation record ed. [id number] Not Available 12/26/2022 05:04:38 01/31/20 23 01/30/2023 colon oscop y ulysses chandra (PROC ) No observ ation record ed. [email or web address] Not Available 2022 09:27:56 Result Notes None recorded. Problems Name Problem SNOMED Code Status Onset Date Resolution Date Notes Provider Name and Address Organization Details Recorded Time Benign essential hypertensi on 8258179 Active Not Available [facility] 3 18:05:03 Liver enzymes outside reference range 030497132 Completed Not Available [facility] 3 04:53:36 Proteinuri a 92369160 Completed Not Available [facility] 3 04:53:37 Type 2 diabetes mellitus without complicati on 012632209 Completed Not Available [facility] 3 04:53:37 Type 2 diabetes mellitus 70566805 Active Not Available [facility] 3 18:05:03 Hyperlipid emia 68548606 Active Not Available [facility] 3 18:05:03 Essential hypertensi on 70198788 Completed Not Available [facility] 3 04:53:37 Diabetes mellitus 26371981 Completed Not Available [facility] 3 04:53:37 Albuminuri a 738683095 Completed 201912/08/2020 Not Available [facility] 3 04:53:36 Adult health examinatio n Active 2021 Not Available [facility] 3 18:05:03 Microscopi c hematuria 058008783 Active 2021 Not Available [facility] 3 18:05:03 Microalbum inuria 976653855 Active 2021 Not Available [facility] 3 18:05:03 Acute urinary tract infection 863484302 Completed 202204/11/2023 Sarah rivero RMA null, [place] [facility] 3 11:47:43 Recurrent urinary tract infection 230500955 Completed 202204/11/2023 Sarah rivero RMA null, [place] [facility] 3 11:47:48 Diverticul osis of colon 369409941 Active 2022 Sarah rivero RMA null, [place] - [facility] 3 11:47:45 Benign prostatic hyperplasi a 100616349 Active 2022 Tramaine Barr MD [address] [place] [address], [address] , [facility] 3 12:01:06 Problem Notes None recorded. Procedures Surgical History Date Name Laterality Status Provider Name and Address Organization Details Recorded Time 7 hernia repair completed Not Available [facility] 12/26/2022 04:43:09 other completed Not Available [facility] 10/2022 04:43:09 Imaging Results None recorded. Procedure Notes None recorded. Medical Equipment None Reported. Allergies Allergen ID Allergen Name Allergen Category Reaction Reaction Severity Criticality Documentation Date Start Date Code Code System Note Provider Name and Address Organization Details Recorded Time 8082 simvastat in medicatio n myalgias (muscle pain) moderate Not available 12/26/2022 71286 RxNorm hyper glyce wilver, weigh t gain Not Available [facility] 3 05:03:57 Medications Name Sig Start Date [...] completed Not Available Not Available Not Available OneTouch Ultra Blue Test Strip 08/08 completed Not Available Not Available Not Available Vitals Date Recorded Body mass index (BMI) Body height Oxygen saturation Oxygen saturation in Arterial blood by Pulse oximetry Heart rate Body weight Systolic And Diastolic Provider Name and Address Organization Details Last Updated DateTime 3 23 kg/m2 177.8 cm 97 % 97 % 77 /min 43132.7 8 g 142/70 mm[Hg] Not Available [facility] 3 04:50:52 Date Recorded Body mass index (BMI) Body height Oxygen saturation Oxygen saturation in Arterial blood by Pulse oximetry Heart rate Body temperature Body weight Systolic And Diastolic Provider Name and Address Organization Details Last Updated DateTime 3 23.2 kg/m2 177.8 cm 97 % 97 % 62 /min 97.6 [degF] 38828.9 6 g 118/66 mm[Hg] Not Available [facility] 3 04:50:52 Date Recorded Body mass index (BMI) Body height Oxygen saturation Oxygen saturation in Arterial blood by Pulse oximetry Pain severity - 0-10 verbal numeric rating [Score] - Reported Heart rate Body weight Systolic And Diastolic Provider Name and Address Organization Details Last Updated DateTime 2 24.2 kg/m2 177.8 cm 97 % 97 % 0 78 /min 95790.1 1 g 130/80 mm[Hg] Not Available [facility] 3 04:50:52 Date Recorded Body height Body mass index (BMI) Body weight Body temperature Heart rate Oxygen saturation Oxygen saturation in Arterial blood by Pulse oximetry Systolic And Diastolic Provider Name and Address Organization Details Last Updated DateTime 3 177.8 cm 23.2 kg/m2 82334.9 6 g 97.7 [degF] 60 /min 97 % 97 % 120/70 mm[Hg] PATRICK Paul [place] - [facility] 3 11:43:57 Date Recorded Body mass index (BMI) Body height Oxygen saturation Oxygen saturation in Arterial blood by Pulse oximetry Heart rate Body weight Systolic And Diastolic Provider Name and Address Organization Details Last Updated DateTime 2 23.5 kg/m2 177.8 cm 98 % 98 % 53 /min 97755.1 5 g 140/74 mm[Hg] Not Available [facility] 04:50:52 Social History Question Answer Notes LastModified by Organizat ion Details LastModified Time Tobacco Smoking Status Former Smoker Not Available [facility] 12/26/2022 04:42:32 Do You Have An Advance Directive? Yes [id number].[id number] Information not available 12/26/2022 Do You Wear A Helmet When Biking? No MIGRATION.71596 12153 Information not available 12/26/2022 Are You Blind Or Do You Have Difficulty Seeing? No MIGRATION.84361 34733 Information not available 12/26/2022 What Is Your Level Of Caffeine Consumption? Occasional MIGRATION.41471 [id number] Information not available 12/26/2022 How Much Tobacco Do You Chew? None MIGRATION.41406 90754 Information not available 12/26/2022 Are You Deaf Or Do You Have Serious Difficulty Hearing? No MIGRATION.74274 93567 Information not available 12/26/2022 What Type Of Diet Are You Following? REGULAR MIGRATION.23703 55397 Information not available 12/26/2022 Which Illicit Or Recreational Drugs Have You Used? None MIGRATION.42542 16449 Information not available 12/26/2022 Have There Been Any Changes To Your Family Or Social Situation? No MIGRATION.03800 99494 Information not available 12/26/2022 What Is The Fluoride Status Of Your Home? Fluoridated MIGRATION.73676 69891 Information not available 12/26/2022 When Did You Quit Smoking? 17+yearssincelastkimberley rosales At 32 Years Old MIGRATION.42941 15534 Information not available 12/26/2022 Where Do You Live? [place] MIGRATION.86625 94579 Information not available 12/26/2022 What Was The Date Of Your Most Recent Tobacco Screening? 04/11/2022 [id number].[id number] Information not available 12/26/2022 Do You Use Your Seat Belt Or Car Seat Routinely? Yes MIGRATION.14032 14724 Information not available 12/26/2022 Do You Have Smoke And Carbon Monoxide Detectors In Your Home? Yes MIGRATION.31344 86599 Information not available 12/26/2022 Do You Use Sunscreen Routinely? No MIGRATION.14571 42531 Information not available 12/26/2022 Do You Have Difficulty Walking Or Climbing Stairs? No MIGRATION.51702 90956 Information not available 12/26/2022 Do You Have Any Dietary Restrictions? No MIGRATION.57607 33762 Information not available 12/26/2022 Sex: Male Functional Status Question Answer Note LastModified by Organizat ion Details LastModified Time What is your level of alcohol consumption? None MIGRATION.252889 0081 Information not available 12/26/2022 Do you have transportation difficulties? No MIGRATION.481698 6482 Information not available 12/26/2022 Are you able to walk independently without assistance or assistive devices? YESWOREST MIGRATION.610541 2673 Information not available 12/26/2022 Do you have difficulty doing errands alone? No MIGRATION.679560 7612 Information not available 12/26/2022 Are you able to care for yourself independently? 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 No MIGRATION.255143 0676 Information not available 12/26/2022 What is your exercise level? None MIGRATION.789337 0688 Information not available 12/26/2022 Mental Status Question Answer Note LastModified by Organizat ion Details LastModified Time Do you have difficulty concentrating, remembering or making decisions? No [id number].[id number] 6 Information not available 12/26/2022 Family History Relationship Description Onset Age of this Age Resolved Age Notes LastModified by Organization Details LastModified Time Brother Diabetes mellitus MIGRATION.849 [id number] Not available 12/26/2022 04:43:20 Brother Diabetes mellitus MIGRATION.724 [id number] Not available 12/26/2022 04:43:20 Father Diabetes mellitus [id number].406 [id number] Not available 12/26/2022 04:43:20 Medical History Condition Response DIABETES, TYPE Y HYPERTENSION Y HIGH CHOLESTEROL / HYPERLIPIDEMIA Y Immunizations Vaccine Type Date Status Note Provider Nam e and Address Organization Details Recorded Time Influenza, high-dose, trivalent, PF 2 completed Not Available [facility] 04/08/2023 18:05:04 Influenza, high-dose, trivalent, PF 0 completed Not Available [facility] 04/08/2023 18:05:04 pneumococcal polysaccharide PPV23 7 completed Not Available [facility] 04/08/2023 18:05:04 SARS-COV-2 (COVID-19) vaccine, UNSPECIFIED 1 completed Not Available [facility] 04/08/2023 18:05:04 SARS-COV-2 (COVID-19) vaccine, UNSPECIFIED 1 completed Not Available [facility] 04/08/2023 18:05:04 Influenza, high-dose, trivalent, PF 9 completed Not Available [facility] 04/08/2023 18:05:04 Influenza, high-dose, quadrivalent, PF 2 completed Not Available [facility] 04/08/2023 18:05:04 Influenza, high-dose, quadrivalent, PF 1 completed Not Available [facility] 04/08/2023 18:05:04 Influenza, split virus, quadrivalent, PF 0 completed Not Available [facility] 04/08/2023 18:05:04 Influenza, split virus, quadrivalent, PF 7 completed Not Available [facility] 04/08/2023 18:05:04 Influenza, split virus, quadrivalent, preservative 6 completed Not Available [facility] 04/08/2023 18:05:04 Influenza, split virus, quadrivalent, PF 5 completed Not Available [facility] 04/08/2023 18:05:04 Past Encounters Encounter ID Performer Location Encounter Start Date Encounter Closed Date Diagnosis/Indication Diagnosis SNOMED-CT Code Diagnosis ICD10 Code Diagnosis IMO Codes Diagnosis Note [id number] Tramaine Barr MD [facility] Internal [facility] [address] [place] [address] 04/06/2021 00:00:00 04/06/2021 13:35:37 [id number] Tramaine Barr MD [facility] Internal [facility] [address] [place] [address] 08/08/2021 00:00:00 08/08/2021 13:28:20 [id number] Tramaine Barr MD [facility] [place] [id number] [facility] [place] [address] 12/08/2021 00:00:00 12/08/2021 12:55:19 [id number] Ar Vega NP [facility] [address] [phone] 12/25/2021 00:00:00 12/25/2021 12:49:53 [id number] Grant Rodgers MD [facility] [address] [address] 01/03/2022 00:00:00 01/03/2022 13:49:04 [id number] Ar Vega NP [facility] [address] [address] 01/22/2022 00:00:00 01/22/2022 12:51:27 [id number] Tramaine Barr MD [facility] [address] [place] [address] 04/11/2022 00:00:00 04/11/2022 13:03:20 [id number] Tramaine Barr MD [facility] [address] [place] [address] 08/22/2022 00:00:00 08/22/2022 12:28:46 [id number] Tramaine Barr MD [facility] [address] [place] [address] 10/30/2022 00:00:00 10/30/2022 15:07:49 [id number] Tramaine Barr MD [facility] [address] [facility] [place] [address] 12/13/2022 00:00:00 12/13/2022 13:25:47 [id number] Tramaine Barr MD [facility] [address] [place] [address]. [place] [address] 04/11/2023 11:39:18 04/11/2023 12:16:18 Type 2 diabetes mellitus 04000344 E11.37X9 under control Benign ess ential hypertension 4110825 I10 under control Hyperlipidemia 59925116 E78.5 no statins due to side effects Microscopic hematuria 19 3042821 R31.29 no symptoms, seen urology Microalbuminuria 5713466 06 R80.9 on lisinopril Adult heal th examination [id number] Z00.00 Colonoscop y- 02/17Pneumo vax- 09/2007Pre vnar and pneumovax - never wantsPSA- 12/20FLU- 07/2022Eye exam- 2COV ID- 02/22/21. 04/03/21,0 12/08/21 Benign pro static hyperplasia [id number] N40.0 meds help Health Concerns Section Related Observation LastModified by Organization Detai ls LastModified Time None Recorded Concern Status LastModified by Organization Details LastModified Time None Recorded Advance Directives Directive Y: Payers Insurance Date Sequence Insurance Name Policy Number Policy Martinez Covered Member ID Martinez Member ID Guarantor Name 04/08/2023 1 [employer] (MEDICARE REPLACEMENT /ADVANTAGE - PPO) [id number] 1 Genaro Jaramillo [id number] Genaro Jaramillo Notes Date Note Type Note Provider Name and Address Organization Details Recorded Time 04/11/2023 text/html Doing fine, compliant to medications, no side affects, here for follow up DM- accu checks are 80-120, controlling diet, doing exercise regularly, A1c was 6.4 (12/2022)Last eye exam was 05/2022 ([facility]) in chartNo hypoglycemia, No numbness or [...] in 5 years Tramaine Barr MD [address] [facility] [address], [place], [address], [facility] 04/11/2023 12:07:32
--- OUTSIDE RECORDS SUMMARY | 2025-08-08 10:04 | XMS_ITS | Clinical Summary ---
Author Organization 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 Name Role Phone Unavailable Primary Care Provider Unavailabl e Immunizations Immunization Administration Dates Next Due Covid-19, Mrna, Lnp-s, Pf, 30 Mcg/0.3 Ml Dose (P darling) 12/08/2021 Social History Tobacco Use Types Packs/Day Years Used Date Smoking Tobacco: Never Assessed Sex and Gender Information Value Date Recorded Sex Assigned at Not on file Legal Sex Male 2:02 PM [employer] Gender Identity Not on file Sexual Orientation Not on file Plan of Treatment Health Maintenance Due Date Last Done Comments Hepatitis C Virus (HCV) Screening 1955 TdaP Immunization 1955 Cologuard 01/09/2001 Colonoscopy 01/09/2001 Colorectal Cancer Screening 01/09/2001 Immunochemical Fecal Occult Blood 01/09/2001 Zoster Immunization (1 of 2) 01/09/2006 Pneumococcal Immunization (50+ years) (2 of 2 - PCV) 09/28/2008 09/28/2007 Influenza Immunization (#1) 06/28/202507/28, 08/12/2020, 10/11/2017, Additional history exists SARS-COV-2 Immunization ( season) 2025 12/08/2021, 04/03/2021, 02/22/2021 Respiratory Syncytial Virus (RSV) Immunization (Adult) (1 - 1-dose 75+ series) 01/09/2031 Hepatitis B Immunization Aged Out No longer eligible based on patient's age to complete this topic Human Papillomavirus (HPV) Immunization Aged Out No longer eligible based on patient's age to complete this topic Meningococcal Immunization (ACWY) Aged Out No longer eligible based on patient's age to complete this topic Rotavirus Immunization Aged Out No lo nger eligible based on patient's age to complete this topic
[2025-08-08 11:57] VITALS: BP 168/102; PULSE 71; RESP 18; O2SAT 97
--- NOTE | 2025-08-08 11:59 | PC.NURSE ---
Late entry: This RN and MD to bedside for eye exam. Beside ultrasound complete and retinal detachment confirmed. DIscussed plan for transfer
--- NOTE | 2025-08-08 12:14 | ED.GENADULT ---
HPI - General Adult General Chief complaint: Eye Problems Stated complaint: L EYE blindness Time Seen by Provider: 08/08/25 09:42 History of Present Illness HPI narrative: This is a 70-year-old male presenting ED chief of left-sided vision loss. Patient says over the last 3 days he has had progressive loss of vision in the left eye. It started in the lower visual natarajan and is progressing upwards along his vision. It is painless. No trauma. No recent eye procedures. Related Data Home Medications ?Medication ?Instructions ?Recorded ?Confirmed ?Last Taken ?Type tamsulosin 0.4 mg capsule 0.4 mg PO DAILY 07/03/23 08/08/25 08/07/25 History rosuvastatin 5 mg tablet 5 mg PO DAILY 08/03/25 08/08/25 Unknown History simvastatin 5 mg tablet 5 mg PO DAILY 08/08/25 08/08/25 08/07/25 History Allergies Allergy/AdvReac Type Severity Reaction Status Date / Time No Known Allergies Allergy Verified 08/08/25 08:55 [facility] Past Medical History Medical History Microalbuminuria due to type 2 diabetes mellitus Nocturia Prostate cancer screening Colon cancer screening CAD (coronary artery disease) Sterile pyuria Vitamin D deficiency Bradycardia High urine white blood cell count Dysuria Encounter to establish care Microalbuminuria Hypertension Low serum parathyroid hormone (PTH) Hyperlipidemia Diabetes Family History Family History Father Alcoholism Diabetes mellitus Heart disease Mother Heart disease Social History Social History Smoking status: Former smoker Alcohol intake: former Substance use: current Substance use type: marijuana Lack of Transportation: No Lack of Food: Never True Current Housing: I Have Housing Concerned About Future Housing: No Difficulty Paying Gas/Electric Bills: No Difficulty Paying for Meds: Decline to Answer Currently Unemployed: No Education: High School Diploma/GED Difficulty w/ Childcare or Family Care: No Exam Narrative: APPEARANCE: No apparent distress. Head: atraumatic. 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 IOP is 12 in the left eye, 18 in the right eye. External eye exam normal. Point of care ultrasound showed a clear retinal detachment of the left eye. NOSE: Atraumatic NECK: Trachea midline RESPIRATORY: No increased rate of breathing CARDIOVASCULAR: RRR, ABDOMINAL: Non-distended MUSCULOSKELETAl: No obvious deformities NEURO: Alert. Moving 4/4 extremities SKIN:: Warm, dry. Normal color PSYCHIATRIC: Normal affect Course Vital Signs Vital signs: Vital Signs Temperature 97.9 F 08/08/25 09:02 Pulse Rate 68 08/08/25 09:02 Respiratory Rate 18 08/08/25 09:02 Blood Pressure 163/99 H 08/08/25 09:02 Pulse Oximetry 98 08/08/25 09:02 Temperature 97.9 F 08/08/25 09:02 Pulse Rate 71 08/08/25 11:57 Respiratory Rate 18 08/08/25 11:57 Blood Pressure 168/102 H 08/08/25 11:57 Pulse Oximetry 97 08/08/25 11:57 Medical Decision Making MDM Narrative Medical decision making narrative: -Course: 70-year-old male presenting with progressive loss of vision left eye. Ultrasound shows retinal detachment. This matches his clinical picture. Case was discussed with Ophthalmology at [facility] - Dr. Mckeon. Case was accepted by Dr. Lopez. Patient be transferred via ambulance for ophtho evaluation. -DDX includes but is not limited to: Retinal detachment, central retinal artery occlusion, Vital Signs Vital Signs: Vital Signs Temperature 97.9 F 08/08/25 09:02 Pulse Rate 68 08/08/25 09:02 Respiratory Rate 18 08/08/25 09:02 Blood Pressure 163/99 H 08/08/25 09:02 Pulse Oximetry 98 08/08/25 09:02 Temperature 97.9 F 08/08/25 09:02 Pulse Rate 71 08/08/25 11:57 Respiratory Rate 18 08/08/25 11:57 Blood Pressure 168/102 H 08/08/25 11:57 Pulse Oximetry 97 08/08/25 11:57 Discharge Plan Discharge Clinical Impression: Retinal detachment Patient Disposition: Acute Care Hospital Condition: Stable Patient Language: Wolof Prescriptions: No Action tamsulosin 0.4 mg capsule 0.4 mg PO DAILY (DME) blood-glucose meter [Contour Meter] Kit See Rx Instructions .Route Qty: 1 0RF Rx Instructions: As directed rosuvastatin 5 mg tablet 5 mg PO DAILY dapagliflozin propanediol [Farxiga] 5 mg tablet 5 mg PO QAM Qty: 90 3RF lisinopril 40 mg tablet 40 mg PO DAILY Qty: 90 3RF sulfamethoxazole-trimethoprim [Bactrim DS] 800-160 mg tablet 1 tablet PO Q12H Qty: 14 0RF simvastatin 5 mg tablet 5 mg PO DAILY omega 6-kta-att-fish oil [Fish Oil] 1,000 mg (120 mg-180 mg) capsule 1 cap PO BID Qty: 180 1RF (DME) lancets [Microlet Lancet] Misc See Rx Instructions .Route Qty: 100 3RF Rx Instructions: As directed (DME) Contour Next Test Strips Strip See Rx Instructions .Route Qty: 200 3RF Rx Instructions: check 2x/day metformin 1,000 mg tablet 1,000 mg PO BID Qty: 180 3RF ergocalciferol (vitamin D2) 1,250 mcg (50,000 unit) capsule 1,250 mcg PO WEEKLY Qty: 12 3RF Follow-up/Referrals: Nuvia Aguilar NP [Primary Care Provider, Family Practice]
--- NOTE | 2025-08-08 12:21 | PC.NURSE ---
Report to EMS, all questions answered. Paperwork sent with patient.
== END 2025-08-08 12:22 | disposition short-term general hospital (02) ==
PROVIDERS: Emergency Provider Emergency Medicine; PCP Nurse Practitioner Family
DX: H33.22 Serous retinal detachment, left eye (principal); I25.10 Atherosclerotic heart disease of native coronary artery without angina pectoris; I10 Essential (primary) hypertension; E78.5 Hyperlipidemia, unspecified; E11.9 Type 2 diabetes mellitus without complications
CPT/HCPCS: 99285